=== PATIENT | female | born 1955 | race Caucasian/White ===

== ENCOUNTER 2016-10-26 20:33 | Observation (INO) | payer OTHER ==
[~2016-10-26] VITALS: Ht 170.2 cm; Wt 83.2 kg
--- NOTE | ~2016-10-26 | HP ---
PATIENT'S NAME: [facility]IO [facility] AGE: 61 Y [address] ROOM: [place] [address] [place] [facility] [place]: [place]26/2016 History & Physical DISCHARGE DATE: FAMILY PHYSICIAN: Leta Birch MD ATTENDING PHYSICIAN: Daniel JIMENEZ DATE OF SERVICE: 10/26/2016 REASON FOR VISIT: Consult for abdominal pain. HISTORY OF PRESENT ILLNESS: This is a 61-year-old otherwise healthy female, who awoke at 1 in the morning with periumbilical abdominal pain that subsequently radiated to the right lower quadrant associated with nausea and one bout of bilious emesis, subjective chills. No fevers. No chest pain. No shortness of breath. PAST MEDICAL HISTORY: Significant for mood disorder and seasonal allergies. PAST SURGICAL HISTORY: Positive for cataracts. ALLERGIES: NO KNOWN DRUG ALLERGIES. MEDICATION: Zoloft 25 mg p.o. q.h.s. PHYSICAL EXAMINATION: VITAL SIGNS: She was afebrile with normal vital signs. Her resting heart rate was 78. GENERAL: She appeared in minimal distress. She was pleasant and fully oriented. Her affect was normal. HEENT: She was anicteric. She had dry mucous membranes. NECK: Supple. CHEST: Normal. CARDIAC: Normal. LUNGS: Clear. ABDOMEN: Soft. She had normal bowel sounds. She had no surgical scars. She had no abdominal wall hernias. She had exquisite tenderness in the right lower quadrant at McBurney's point. She had a positive Rovsing sign. She had a negative pelvic shake. She had a negative heel tap, negative obturator, positive psoas sign. She had no diffuse peritonitis. She had no changes to the overlying skin. PATIENT'S NAME: [facility] AGE: 61 Y [address] ROOM: [place] [address] [place] [facility] [place]: 10/26/2016 History & Physical DISCHARGE DATE: FAMILY PHYSICIAN: Leta Birch MD ATTENDING PHYSICIAN: Daniel JIMENEZ EXTREMITIES: Normal. IMAGING DATA: Her CT scan was reviewed with findings consistent with acute appendicitis. IMPRESSION: Acute appendicitis. PLAN: Laparoscopic appendectomy. The patient lives far away and will be admitted overnight. The risks, benefits, indications, and alternatives of the proposed procedure were discussed with the patient. The patient is eager to proceed. DANIEL JIMENEZ MD CM/roseline /[id number] D: [id number] T: [id number] HISTORY & PHYSICAL
--- NOTE | ~2016-10-26 | OR ---
PATIENT'S NAME: [facility] AGE: 61 Y [address] ROOM: [place] [address] [place] [facility] [place]: 10[place]26/[place] OR/Procedure Report DISCHARGE DATE: FAMILY PHYSICIAN: Leta Birch MD ATTENDING PHYSICIAN: Daniel JARAMILLO SURGEON: Daniel Jaramillo MD [employer]: DATE OF PROCEDURE: 10/27/2016 PREOPERATIVE DIAGNOSIS: Acute appendicitis. POSTOPERATIVE DIAGNOSIS: Acute appendicitis. PROCEDURE PERFORMED: Laparoscopic appendectomy. ANESTHESIA: General endotracheal anesthesia. COUNT: Sponge and needle counts at the end of the case were correct. COMPLICATIONS: None. SPECIMENS: Appendix. DESCRIPTION OF PROCEDURE: After informed consent was obtained, the patient was taken to the operating room and intubated. A Zhou catheter was placed. The patient's anterior abdominal wall was sterilely prepped and draped. A surgical time-out was performed prior to initiation of the procedure. Local anesthetic was used at the umbilicus prior to a stab incision in the infraumbilical midline. Veress needle technique was used to create a pneumoperitoneum. A 5-mm camera was passed through a 5-mm port. No injury to subjacent bowel was noted. A 5-mm suprapubic midline and a 12-mm left lower quadrant port were placed under camera visualization. Visualization in the right lower quadrant revealed a thickened and inflamed appendix with a thickened mesoappendix consistent with diagnosis of acute appendicitis. The mesoappendix was divided with the Harmonic Scalpel. The base of the appendix appeared involved in the acute inflammatory process and could not suitably accept suture ligature. [place] Flex stapler with a GI load was used to fire across the base of the cecum incorporating the appendix and staying well clear off the ileocecal junction. Specimen was passed into an EndoCatch bag and extracted through the 12-mm left lower quadrant port. Inspection of the right lower quadrant revealed no evidence of bleeding or leak or iatrogenic injury. There was no spillage of contents from the appendix. There was no evidence of ongoing bleeding. The visualized portions of liver, gallbladder, stomach, and colon and small bowel and omentum were all normal. The ports were removed under direct visualization. The fascia of the 12-mm port was closed with PATIENT'S NAME: [facility] AGE: 61 Y [address] ROOM: [place] [address] [place] [facility] [place]: 10/26/2016 OR/Procedure Report DISCHARGE DATE: FAMILY PHYSICIAN: Leta Birch MD ATTENDING PHYSICIAN: Daniel JARAMILLO interrupted Vicryl. 4-0 Monocryl and Dermabond were used for all ports. The patient was extubated in the operating room after Dermabond was placed on the surgical wounds. Zhou catheter was removed. The patient was taken to the recovery room in stable condition. DANIEL JARAMILLO MD CM/roseline /[id number] d: 10/27/162 t: 11/24/16 1448, OPERATIVE SUMMARY
--- NOTE | 2016-10-27 02:59 | NUR ---
Significant Event: 61 year old female back from PACU at 0215 after having a lap appy. Little medical history other than some anxiety. Currently doing post-op vitals. Saline locked, regular diet, up ad-melissa. Follow up: Continue to monitor.
[2016-10-27] MEDS ORDERED: ZOLOFT25 MG PO (03:31)
[2016-10-27] MEDS ORDERED: PERCOCET 5-3251 EACH PO (08:47)
--- NOTE | 2016-10-27 09:44 | NUR ---
DISCHARGE: Pt. was explained discharge instructions, lap appy instructions, incision care, and new medication: percocet. No questions or concerns, verbalized understanding of teaching. IV removed by primary nurse. Left with all belongings and prescriptions. Taken to front door by aide and driven home by . Out at 0944.
== END 2016-10-27 09:44 | disposition disaster alternative care site (69) ==
LOC: G2N 20:33 → GMSU 23:24
PROVIDERS: ADMIT Surgery
PROC: 0DTJ4ZZ Resection of Appendix, Percutaneous Endoscopic Approach (ICD-10-PCS; principal; 2016-10-27)
DX: K35.80 Unspecified acute appendicitis (principal); F39 Unspecified mood [affective] disorder; Z98.49 Cataract extraction status, unspecified eye
CPT/HCPCS: J0690; J7120

== ENCOUNTER → 2016-10-26 | Outpatient (CLI) | payer OTHER ==
[~2016-10-26] MED LIST: PERCOCET 5-3251 EACH PO; ZOLOFT25 MG PO
== END | disposition disaster alternative care site (69) ==
LOC: GAMB 22:02
DX: R10.31 Right lower quadrant pain (principal); K35.80 Unspecified acute appendicitis
CPT/HCPCS: A0425; A0428